=== PATIENT | male | born 1955 | race Caucasian/White ===

== ENCOUNTER 2021-03-06 01:18 | Day surgery (SDC) | payer MEDICARE, OTHER, SELFPAY ==
[2021-02-20 09:56] VITALS: BMI 25.5
--- NOTE | 2021-02-20 10:08 | PC.NURSE ---
Report to the Outpatient Waiting Room, entrance under the green pavilion located off [facility], at time ____0800___ on date _03/06/21 . OR Time: . - You and your visitor will be asked a series of questions to screen for COVID 19 for your protection. - A mask is required within the hospital. - Only one visitor is allowed at this time. Patient visitors will be guided where to wait when not with patient. Preoperative COVID Testing Requirements: No COVID Test needed if: (proof is required; if not received patient will have Rapid Test prior to entry) - Patient has received COVID Vaccine at least 14 days prior to procedure date or - Patient has positive COVID test result within last 90 days of surgery date. COVID Test needed if above criteria is not met If not COVID vaccinated a COVID test must be conducted within 72 hours of surgery and patient is asked to isolate self from time of testing until procedure. You will go to the [facility] for your COVID testing. The [facility] is located at the corner of [address] [facility]. You will only be called if COVID results are positive and your surgeon may reschedule your elective surgery date. Patients may have clear liquids (water, carbonated beverages, clear teas, apple juice) until 3 hours prior to surgery with a maximum of 20 ounces. - No food from midnight until time of surgery 0700 - Infants may have breast milk until 4 hours before surgery, infant formula 6 hours prior to surgery. - Children will be allowed to drink immediately following surgery. If applicable, please bring a bottle or sippy cup to assist with drinking. Juice, water, soda, and popsicles are readily available. For infants on formula, please bring formula the day of surgery. Pacifiers are allowed. Take the following medications with a SIP of water the morning of surgery: NASAL SPRAY PRN Medications to discontinue per physician MULTIPLE VITAMINS/SUPPLEMENTS 3 DAYS PRE-OP Date to take last dose 03/03/21 Please no make-up, nail irish, hairspray, perfume, deodorant, or body powder the day of surgery. No jewelry (including any body piercings) or valuables the day of surgery, leave them at home. Please take a shower or bath the night before, or the morning of, surgery with an antibacterial soap. Wear comfortable, loose fitting clothing. Children are encouraged to wear pajamas. - Jewelry must be removed prior to entering the operating room. Rings and piercings that are not removed may be cut off. - The hospital will not accept responsibility for valuables. - Please leave all valuables, including medications, at home the day of surgery. If you are going home after surgery, a licensed non cdl driver must drive you home. - NO public transportation without another adult. - We recommend that an adult stay with you for 24 hours following discharge. - We also recommend that you do not drive, make important decision, drink alcoholic beverages, or take any drugs that were not prescribed by your health care provider for at least 24 hours after your discharge time. For Pediatric surgeries, we recommend two adults accompany the child home (only one inside the building at this time). Follow any additional instructions given to you from your surgeon. Telephone instructions given to ____PATIENT and asked if any additional questions and then verbalized understanding. Patient advised to call surgeon office or pre surgery nurse liaison [phone] if any additional questions.
--- NOTE | 2021-03-06 07:50 | WPDHPUPDATE1 ---
History and Physical Update Update Date/Time: 03/06/21 07:50 History and Physical has been reviewed, including an updated exam of the patient. There are NO changes in the patient's condition. Risks, benefits, and alternatives have been discussed and questions answered. Patient agrees to proceed with procedure.
[2021-03-06] MEDS: ACETAMINOPHEN 500 MG TABLET 1000 MG PO (08:17)
[2021-03-06 08:42] VITALS: BP 134/71; PULSE 60; RESP 16; TEMP 36.8; O2SAT 100
[2021-03-06] MEDS: LACTATED RINGERS 1,000 ML 30 ML IV CONT (08:48)
[2021-03-06] MEDS: KETOROLAC 15 MG/ML VIAL (*BKC) IV PUSH (08:49)
--- NOTE | 2021-03-06 09:21 | P.PNAN_ITS ---
Anes - Initial Pre Proc Eval Procedure: Operation Date: 03/06/21 10:00 Proposed Procedures p Right Open Inguinal Hernia Repair - Benjy Rubi MD Date/Time: 03/06/21 09:21 Surgeon: Benjy Rubi MD Pre Op Diagnosis: right inguinal hernia Patient Data Age: 66 Gender: M Height: 1.7 m Weight: 73.9 kg Last Vital Signs Temp 36.8 C 03/06/21 08:42 Pulse 60 03/06/21 08:42 Resp 16 03/06/21 08:42 BP 134/71 03/06/21 08:42 Pulse Ox 100 03/06/21 08:42 Allergies Allergy/AdvReac Type Severity Reaction Status Date / Time No Known Allergies Allergy Verified 03/06/21 08:12 Home Medications Medication Instructions Recorded Confirmed Type fluticasone propionate 50 1 spray NASAL DAILY 04/19/19 03/06/21 History mcg/actuation nasal spray,suspension multivitamin [Multiple Vitamin] 1 tablet PO DAILY 02/20/21 03/06/21 History Patient hx anesthesia problems: none Family hx anesthesia problems: none Results Review: All pre-operative results and documents have been reviewed as part of the pre-operative evaluation. [facility] Surgical History Surgical History Excessive cerumen in ear canal History of sinus surgery Hx of colonoscopy Family History Family History Father Hypertension Mother Emphysema/COPD Grandparent Heart disease Social History Social History Smoking status: Never smoker Alcohol intake: current Substance use: never Living arrangements: alone Gender identity (if verbalized by the patient): Male Spiritual care concerns: No Anes - Eval Final PreProcedure Day of Procedure 03/06/21 09:21 Patient weight: normal Heart: regular rate and rhythm Lungs: clear to auscultation Airway: Mallampati scale class II Neurological: alert and oriented Last oral intake: >/= 8 hours ASA classification: I Emergent: no Anesthetic plan: proceed Anesthesia type and monitoring: general GIVS and standard monitoring Results Review: All pre-operative results and documents have been reviewed as part of the pre-operative evaluation. Informed Consent: The patient's anesthetic plan and its attendant risks and benefits were discussed with the patient/family/POA. Questions were solicited and answers provided to the satisfaction of the patient/family/POA.
[2021-03-06] MEDS: ceFAZolin 2 GM/D5W 50 ML 2 GM/50 ML BAG IVPB (10:42)
[2021-03-06] MEDS: BUPIVACAINE HCL 0.5% PF 30 ML VIAL INFILTRATE (11:12)
[2021-03-06 12:15] VITALS: BP 97/54; PULSE 61; RESP 12; O2SAT 100
[2021-03-06 12:45] VITALS: BP 122/69; PULSE 54; RESP 20
--- NOTE | 2021-03-06 12:47 | W.PM.PROC2 ---
Procedure Note - Detailed Date of Procedure 03/06/21 Pre-op Diagnosis right inguinal hernia Post-op Diagnosis same Procedure Performed Right inguinal hernia repair with large PerFix plug light Surgeon Benjy Rubi MD Licensed Prosthetist/Orthotist Jie GAINES Anesthesia MAC and local (0.5% Marcaine) Indications Patient is a 66-year-old man who noticed a bulge and some discomfort in his right groin. Examination showed a right inguinal hernia. He is taken to surgery now for repair. Findings Showed a large right indirect hernia. Description of Procedure Patient was taken to surgery and placed in a supine position. IV sedation was administered. The right groin and genitalia were prepped and draped. The proposed incision was marked on the skin. Local was infiltrated into the skin and the deeper subcutaneous tissues. Incision was made dissection was carried down through the subcutaneous. Crossing veins were cauterized and divided. We continued the dissection down to the external oblique aponeurosis. The aponeurosis was exposed as was the external ring. I then infiltrated additional local deep to the aponeurosis in the area of the inguinal canal and its contents. The aponeurosis was opened laterally and extended medially through the external ring. We then dissected the leaves the aponeurosis freed from the underlying inguinal canal contents. The ileoinguinal nerve was carefully protected was left attached to the spermatic cord throughout the surgery. The cord was mobilized medially on a Felix drain. It was continued to be mobilized back to the internal ring dividing cremasteric fibers to do so. Dissection was carried out in the anteromedial aspect of the spermatic cord. The hernia sac was found fairly easily. It was dissected free from the cord structures. It was then dissected back to a high dissection. It was dunked into the retroperitoneum. Some additional cord mobilization was then carried out. A large PerFix plug light plug was then placed in the defect. The edges were then sutured to the transversalis fascia with interrupted 3 0 Vicryl suture. The patch was cut to the appropriate size and placed over the inguinal canal floor. The lateral leaves were passed beyond the cord. Xaracoll was then placed over the patch covering the inguinal canal floor. The cord was placed over the Xaracoll and the external oblique aponeurosis was closed with interrupted 3 0 Vicryl suture. We then placed a 2nd layer of Xaracoll over the external oblique. Hira's fascia was closed with interrupted 3-0 Vicryl suture. A final layer Xaracoll was then placed in the subcutaneous. The skin was loosely approximated with subcuticular interrupted 4-0 Vicryl skin sutures. Finally the skin was closed with a running 4-0 Monocryl skin suture. The wound was dressed with Exofin surgical adhesive. The patient was awakened and taken to recovery in good condition. Sponge and needle counts were correct x2. Implants Xaracoll bupivacaine impregnated bovine collagen Estimated Blood Loss -5 Drains No Packing No Pathology none sent Complications No immediate complications Condition stable Disposition same day
[2021-03-06 13:15] VITALS: BP 124/74; PULSE 58; RESP 20
[2021-03-06 13:45] VITALS: BP 130/72; PULSE 60; RESP 20
== END 2021-03-06 14:08 | disposition home or self-care (01) ==
PROVIDERS: PCP Family Medicine; Visit Provider Surgery
PROC: (CPT 49505; principal; 2021-03-06 10:00)
DX: K40.90 Unilateral inguinal hernia, without obstruction or gangrene, not specified as recurrent (principal)
CPT/HCPCS: 49505; A9270; J0690; J1100; J1885; J2250; J2405; J2704; J3010; J7120